=== PATIENT | male | born 1995 | race African-American/Black ===

== ENCOUNTER 2016-08-29 18:47 | Emergency (ER) | payer OTHER ==
[2016-09-02 18:09] LABS: CHLAMYDIA TRACHOMATIS, NAA Positive (Negative)
== END 2016-08-29 21:15 | disposition home or self-care (01) ==
LOC: D.ER 18:47
PROVIDERS: Family Medicine
DX: A54.01 Gonococcal cystitis and urethritis, unspecified (principal); J45.909 Unspecified asthma, uncomplicated

== ENCOUNTER 2017-09-16 16:08 | Emergency (ER) | payer MEDICAID | END 2017-09-16 19:25 | disposition home or self-care (01) | LOC: D.ER 16:08 | DX: A60.00 Herpesviral infection of urogenital system, unspecified (principal) ==

== ENCOUNTER 2018-03-23 22:03 | Emergency (ER) | payer OTHER ==
[~2018-03-23] VITALS: Ht 188 cm; Wt 103.6 kg
[2018-03-23 22:12] VITALS: BP 132/77; Ht 188 cm; Wt 103.6 kg
== END 2018-03-23 22:45 | disposition left against medical advice (07) ==
LOC: D.ER 22:03
DX: R51 Headache (principal)